=== PATIENT | female | born 1995 | race Caucasian/White ===

== ENCOUNTER 2019-06-10 09:05 | Outpatient (REF) | payer OTHER, SELFPAY ==
--- NOTE | 2019-06-10 08:16 | SKI_PTH ---
PATIENT: OMA SENA LOC: [facility] U#:[id number] AGE/SX: 23/F ROOM: RE06/10/[address]: Bennie Sifuentes MD : 1995 BED: DIS: 06/10/2019 SPEC #: [id number] RECD: 06/10/19 18:06 STATUS: CASIE REJoi #: [id number] [place]: 06/10/19 08:[address]: Bennie Sifuentes DEPT: Surgical Specimen RECD BY: Penelope Henderson ENTERED: 06/10/19 18:07 SP TYPE: SHALONDA WADE DR: Matilda Ray Tissues: 1 - SKIN BIOPSY(SHAVE/PUNCH) Procedures: SKIN LEVEL 4 SPECIAL STAIN 1 Comments: [id number]
== END 2019-06-10 09:25 ==
LOC: LBN 09:05
PROVIDERS: PCP Registered Nurse; Visit Provider Otolaryngology
DX: K13.70 Unspecified lesions of oral mucosa (principal)
CPT/HCPCS: 88305; 88312

== ENCOUNTER 2019-07-08 06:08 | Day surgery (SDC) | payer OTHER, SELFPAY ==
[2019-07-08] VITALS (8 sets, daily range): BP systolic 104–121; BP diastolic 51–96; PULSE 56–84; RESP 14–19; TEMP 35.7–36.7; O2SAT 96–100
[2019-07-08] MEDS: Lactated Ringers 1,000 ML 80 ML IV (06:38)
[2019-07-08] MEDS: ceFAZolin 2 GM/50 ML BAG IVPB (07:31)
--- NOTE | 2019-07-08 07:45 | TONSIL_PTH ---
PATIENT: OMA SENA LOC: [facility] U#:[id number] AGE/SX: 23/F ROOM: RE07/08/[address]: Bennie Sifuentes MD : 1995 BED: DIS: 07/08/2019 SPEC #: [id number] RECD: 07/08/19 11:36 STATUS: CASIE REQ #: [id number] [place]: 07/08/19 07:[address]: Bennie Sifuentes DEPT: Surgical Specimen RECD BY: Penelope Henderson ENTERED: 07/08/19 11:37 SP TYPE: TONSIL OTHR DR: Matilda Ray Tissues: 1 - TONSIL AGE 17 & OVER 2 - TONSIL AGE 17 & OVER Procedures: GROSS AND MICRO LEVEL 3 Comments: [id number]
--- NOTE | 2019-07-08 08:12 | PDOC.DSDIS_ITS ---
Discharge Plan Disposition Patient Disposition: HOME Condition: Good Discharge Details Attending Provider: Bennie Sifuentes Primary Care Provider: Matilda Ray Home Meds and New Rx's Prescriptions: No Action Mirena 20 mcg/24 hours (5 yrs) 52 mg Intrauterine Device 1 device INTRAUTERINE DIRECTED RF: 0 ibuprofen 200 mg Tablet 400 mg PO PRN PRNRF: 0 Discharge Instructions Stand Alone Forms: ENT-T+A Instructions Referrals: Bennie Sifuentes MD [ [facility] STAFF PHYSICIAN] - (1 month)
[2019-07-08] MEDS: Droperidol 5 MG/2 ML VIAL 0.625 MG IVP (08:17)
[2019-07-08] MEDS: LORazepam 2 MG/ML VIAL 0.5 MG IVP (08:25)
--- NOTE | 2019-07-08 09:38 | ROE_ITS ---
DATE OF PROCEDURE July 08, 2019 PREOPERATIVE DIAGNOSES Recurrent left-sided peritonsillar abscess. POSTOPERATIVE DIAGNOSES Recurrent left-sided peritonsillar abscess. PROCEDURE Tonsillectomy. SURGEON Bennie Sifuentes M.D. ANESTHESIA General endotracheal. SPECIMENS Left and right tonsils - Sent separately. ESTIMATED BLOOD LOSS 20 cc FLUIDS 500 cc COMPLICATIONS None. INDICATIONS FOR SURGERY The patient with the above problems. Options were explained to the family regarding further manageme nt. They elected to undergo the above procedure. Consent was filled out and signed prior to surgery. DESCRIPTION After obtaining an adequate level of general endotracheal anesthesia, the patient was positioned in t he supine position and position, prepped, and draped in appropriate fashion. A Shayy-Ravinder mouth gag was carefully introduced into the oral cavity and used to reveal the soft and hard palate, which were examined, revealing no evidence of an occult cleft palate. The fistulous tra ct from her left peritonsillar abscess was identified. No purulent debris could be expressed through the fistulous tract. The adenoids were examined revealing no significant adenoid, with no evidence of inflammation. Follow ing this, 1% lidocaine with 1:100,000 epinephrine was injected into the submucosal space around the t onsil bilaterally. The left tonsil was then approached first. A #12 blade was used to incise the muco sa along the superior edge of the tonsil, as well as the anterior and posterior edges of the tonsil. Following this a Nancy elevator was used to disarticulate the superior pole of the tonsil from the ton sillar fossa. A significant amount of scar tissue and a small potential space was encountered along t he superior lateral aspect of the tonsil. No purulent debris was encountered. Following this a Ward blade was used to strip the tonsil free from the tonsillar fossa down to the inferior pole, at which point in time, a tonsillar snare was used to amputate the tonsil from the tonsillar fossa. Attention was then turned to the opposite side, where similar procedure was used with no encountered scar tissue. Once both of the tonsils had been removed, electrocautery suction tip catheter was set o n 15 orr coagulation was used to achieve relative hemostasis within the tonsillar fossa bilaterally . The Shayy-Ravinder mouth gag was relaxed and reopened revealing no further bleeding. Valsalva failed to induce any further bleeding. The patient was then awakened and extubated by Anesthesia and taken to the Recovery Room in stable condition. I was present throughout the entire case.
== END 2019-07-08 10:50 | disposition home or self-care (01) ==
PROVIDERS: PCP Registered Nurse; Visit Provider Otolaryngology
PROC: (CPT 42826; principal; 2019-07-08 07:30)
DX: J35.01 Chronic tonsillitis (principal); J36 Peritonsillar abscess
CPT/HCPCS: 42826; 81025; 88304; J0131; J0690; J1100; J1790; J2001; J2060; J2250; J2405; J2704; J3010